=== PATIENT | female | born 1970 | race Caucasian/White ===

== ENCOUNTER 2016-07-21 13:59 | Emergency (ER) | payer OTHER ==
[~2016-07-21] VITALS: Ht 167.6 cm; Wt 106.8 kg
[2016-07-21 14:03] VITALS: BP 141/84; PULSE 83; RESP 16; TEMP 98.1
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
--- NOTE | 2016-07-21 15:49 | RADRPT ---
EXAM DATE/TIME: 07/21/2016 14:37 [facility] COMPARISON: No previous studies available for comparison. INDICATIONS : Left leg swelling. MEDICAL HISTORY : Hypertension. Chronic obstructive pulmonary disease. Hepatitis B. Migraines. Gestational diabetes. Substance use. Anticoagulant therapy. MRSA. SURGICAL HISTORY : Appendectomy. Cholecystectomy. section. Tual ligation. Lipoma removed from leg. ENCOUNTER: Initial ACUITY: 3 weeks PAIN SCORE: 0/10 LOCATION: Left leg. TECHNIQUE: Venous ultrasound of the leg was performed from the inguinal ligament to the proximal calf. Real-wayne e, color Doppler and spectral tracing, compression and augmentation techniques were used. FINDINGS: There is normal compressibility of the deep venous system from the inguinal region to the proximal ca lf. No echogenic clot is seen in the lumen of the common femoral, femoral, popliteal, and posterior tibial veins. There is a normal response of the venous system to proximal and distal augmentation an d respiration. Prominent lymph node is identified in the groin measuring 3.2 x 2.5 cm in size. CONCLUSION: No evidence of DVT. Enlarged left groin lymph node. Michael Calix MD on July 21, 2016 at 15:46 Board Certified Radiologist. This report was verified electronically.
== END 2016-07-21 16:08 | disposition home or self-care (01) ==
LOC: NEPB 13:59
DX: S80.12XA Contusion of left lower leg, initial encounter (principal); I10 Essential (primary) hypertension; Z72.0 Tobacco use; Z87.19 Personal history of other diseases of the digestive system; Z79.01 Long term (current) use of anticoagulants; Z87.09 Personal history of other diseases of the respiratory system; Z86.69 Personal history of other diseases of the nervous system and sense organs; W50.1XXA Accidental kick by another person, initial encounter
CPT/HCPCS: 73590; 93971